=== PATIENT | female | born 1985 ===

== ENCOUNTER 2021-05-31 17:06 | Inpatient (IN) | payer SELFPAY ==
[2021-05-31] MEDS ORDERED: BICITRA ORAL LIQD 30ML PO SCH (19:09)
[2021-05-31] MEDS ORDERED: METOCLOPRAMIDE 10 MG/2 ML INJ IV SCH (19:09)
[2021-05-31] MEDS ORDERED: FAMOTIDINE 20 MG/2 ML INJ IV SCH (19:09)
[2021-05-31] MEDS ORDERED: NalbUPHINE 10 MG/1 ML INJ IV PRN (19:12)
[2021-05-31] MEDS ORDERED: ACETAMINOPHEN 325 MG TAB PO PRN (19:12)
[2021-05-31] MEDS ORDERED: fentaNYL 100 MCG/2 ML INJ IV PRN (19:12)
[2021-05-31] MEDS ORDERED: LACTATED RINGERS 1,000 ML IV SCH (19:15)
[2021-05-31] MEDS ORDERED: LACTATED RINGERS 1,000 ML IV ONE (19:32)
--- NOTE | 2021-05-31 19:40 | History and Physical Report ---
History of Present Illness Date of examination: 05/31/21 Date of admission: 05/31/21 Chief complaint: Contractions History of present illness: 36 year old female presented to L&D with complaint of contractions. Patient received care at [facility] OB-[facility]ED [facility] DIS[facility]ENS[facility]; records were requested and have now been received. LMP 08/30/20. EDC 06/06/21. significant for the following: AMA, hypothyroidism (on Levothyroxine 100 mcg daily), pregestational diabetes (on insulin and Metformin), previous section, rubella nonimmune, varicella nonimmune, US positive for soft markers (flat forehead, low set ears, clenched fists 01/21/21). labs are as follows: O+, antibody screen negative, pap smear negative, rubella nonimmune, RPR nonreactive, hepatitis B surface antigen negative, HIV negative, hemoglobin A1C 8.5%, hemoglobin electrophoresis AA, gonorrhea negative, chlamydia negative, trichomonas negative, varicella nonimmune, 24 hour urine protein 372 mg, quad screen negative, GBS negative. 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 denies: smoking, alcohol abuse, prescription drug abuse, IV drug use - Obstetrical History Expected Date of Delivery: 06/06/21 Actual Gestation: 39 Week(s) 1 Day(s) : 2 Para: 1 Hx # Term Pregnancies: 1 Number of Pregnancies: 0 Spontaneous Abortions: 0 Induced : 0 Number of Living Children: 1 Medications and Allergies Allergies Allergy/AdvReac Type Severity Reaction Status Date / Time shellfish derived AdvReac Hives Verified 05/31/21 17:27 Home Medications Medication Instructions Recorded Confirmed Last Taken Type Levothyroxine [Synthroid] 100 mcg PO DAILY 12/09/14 12/09/14 Unknown History Vits96/Iron Fum/Folic 1 each PO QDAY 12/09/14 12/09/14 Unknown History [ Tablet] glyBURIDE [Glyburide] 5 mg PO QPM 07/06/15 07/06/15 Unknown History glyBURIDE [Glyburide] 7.5 mg PO QAM 12/09/14 12/09/14 Unknown History Ibuprofen [Motrin 800 MG tab] 800 mg PO Q8HR PRN #90 tablet 12/11/14 Unknown Rx Levothyroxine [Synthroid] 100 mcg PO QAM 12/11/14 12/11/14 Unknown History Vit No.126/Iron/Folic 1 tab PO DAILY 12/11/14 12/11/14 Unknown History [Classic Tablet] glyBURIDE [Diabeta] 2.5 mg PO BID 12/11/14 12/11/14 Unknown History oxyCODONE /ACETAMINOPHEN [Percocet 1 tab PO Q6HR PRN #30 tablet 12/11/14 Unknown Rx 5/325 mg] Active Meds: Active Medications Acetaminophen (Acetaminophen 325 Mg Tab) 650 mg PO Q4H PRN PRN Reason: Pain, Mild (1-3) Citric Acid/Sodium Citrate (Bicitra Oral Liqd 30ml) 30 ml PO ONCE WOLF Famotidine (Famotidine 20 Mg/2 Ml Inj) 20 mg IV ONCE WOLF Stop: 06/01/21 19:08 Fentanyl (Fentanyl 100 Mcg/2 Ml Inj) 100 mcg IV Q2H PRN PRN Reason: Pain,Severe (7-10) LABOR PAIN Lactated Ringer's (Lactated Ringers) 1,000 mls @ 999 mls/hr IV BOLUS ONE Stop: 05/31/21 20:32 Lactated Ringer's (Lactated Ringers) 1,000 mls @ 2,250 mls/hr IV PREOP WOLF Stop: 06/01/21 19:42 Oxytocin/Sodium Chloride (Pitocin/Ns 30 Unit/500ml) 30 units in 500 mls @ 0 mls/hr IV TITR WOLF; Protocol Cefazolin Sodium 3 gm/ Sodium (Chloride) 100 mls @ 100 mls/30 min IV PREOP NR; Protocol Stop: 06/01/21 19:14 Metoclopramide HCl (Metoclopramide 10 Mg/2 Ml Inj) 10 mg IV ONCE WOLF Morphine Sulfate (Morphine 2 Mg/1 Ml Inj) 2 mg IV ONCE ONE Stop: 05/31/21 19:30 Nalbuphine HCl (Nalbuphine 10 Mg/1 Ml Inj) 10 mg IV Q2H PRN PRN Reason: Pain, Moderate (4-6) Review of Systems All systems: negative (contractions) - Vital Signs Vital signs: Vital Signs Pulse BP 83 122/64 05/31/21 17:26 05/31/21 17:26 Temp Pulse Resp BP Pulse Ox 83 122/64 05/31/21 17:26 05/31/21 17:26 ROM plus test positive. - Physical Exam Abdomen: Positive: normal appearance, soft. Negative: distention, tenderness, guarding, rigidity Genitourinary (Female): Positive: normal external genitalia, normal perenium. Negative: perineal/vulvar lesions Vagina: Positive: other (small amount of pink fluid) Uterus: Positive: enlarged. Negative: tender Anus/Rectum: Positive: normal perianal skin Extremities: Negative: tenderness - Obstetrical FHR: category 1 Uterine Contraction Monitor Mode: External Cervical Dilatation: 3 Cervical Effacement Percentage: 60 station: -2 Uterine Contraction Pattern: Regular Uterine Contraction Intensity: Mild Results Abnormal lab results 05/31/21 Range/Units 17:47 Membranes Rupture Positive A (Negative) All other labs normal. Assessment and Plan A: at 39 weeks, 1 day gestation. Spontaneous rupture of membranes. Early labor. Pregestational diabetes (on insulin and metformin). Hypothyroidism. Obesity. AMA. P: Admit for repeat section. Requested record and have now been received. Consulted with Dr. Crow re: this patient; Dr. Crow en route to perform section. Notified patient's nurse and charge nurse that patient will be going to OR for C/S soon. C/S orders put in.
[2021-05-31] MEDS ORDERED: OXYTOCIN DRIP 30 UNITS/500 ML BAG IV SCH (20:00)
[2021-05-31] MEDS ORDERED: MORPHINE 2 MG/1 ML INJ IV ONE (20:29)
[2021-05-31 20:30] LABS: Basophils # (Auto) 0.1 K/mm3 (0.0-0.1); Basophils % (Auto) 0.4 % (0.0-1.8); Hematocrit 36.1 % (30.3-42.9); Hemoglobin 11.8 gm/dl (10.1-14.3); Lymphocytes # (Auto) 2.9 K/mm3 (1.2-5.4); Lymphocytes % (Auto) 21.3 % (13.4-35.0); Mean Corpuscular HGB Conc 33 % (30-34); Mean Corpuscular Volume 88 fl (79-97); Monocytes # (Auto) 0.7 K/mm3 (0.0-0.8); Monocytes % (Auto) 5.3 % (0.0-7.3); Platelet Count 247 K/mm3 (140-440); Red Blood Count 4.12 M/mm3 (3.65-5.03); Red Cell Distribution Width 14.7 % (13.2-15.2)
--- NOTE | 2021-05-31 20:37 | Anesthesia Day of Surgery ---
Anesthesia Day of Surgery - Day of Surgery Patient Examined: Yes Patient H&P Reviewed: Yes Patient is NPO: Yes Beta Blockers: No Cardiac Clearance: No Pulmonary Clearance: No Eddi's Test: Negative
--- NOTE | 2021-05-31 20:39 | Anesthesia Consultation ---
Anesthesia Consult and Med Hx Date of service: 05/31/21 - Airway Anesthetic Teeth Evaluation: Poor ROM Head & Neck: Adequate Mental/Hyoid Distance: Adequate Mallampati Class: Class II Intubation Access Assessment: Probably Good - Pulmonary Exam CTA: Yes - Cardiac Exam Cardiac Exam: RRR - Pre-Operative Health Status ASA Pre-Surgery Classification: ASA3 Proposed Anesthetic Plan: Spinal - Pulmonary Hx Smoking: No Hx Asthma: No Hx Respiratory Symptoms: No SOB: No COPD: No Home Oxygen Therapy: No Hx Pneumonia: No Hx Sleep Apnea: No - Cardiovascular System Hx Hypertension: No Hx Coronary Artery Disease: No Hx Heart Attack/AMI: No Hx Angina: No Hx Percutaneous Transluminal Coronary Angioplasty (PTCA): No Hx Cardia Arrhythmia: No Hx Pacemaker: No Hx Internal Defibrillator: No Hx Valvular Heart Disease: No Hx Heart Murmur: No Hx Peripheral Vascular Disease: No - Central Nervous System Hx Neuromuscular Disorder: No Hx Seizures: No CVA: No Hx Back Pain: Yes Hx Psychiatric Problems: No - Gastrointestinal Hx Ulcer: No Hx Gastroesophageal Reflux Disease: Yes - Endocrine Hx Renal Disease: No Hx End Stage Renal Disease: No Hx Cirrhosis: No Hx Liver Disease: No Hx Insulin Dependent Diabetes: Yes Hx Non-Insulin Dependent Diabetes: No Hx Thyroid Disease: No Hx Hypothyroidism: Yes Hx Hyperthyroidism: No - Hematic Hx Anemia: No Hx Sickle Cell Disease: No - Other Systems Hx Alcohol Use: No Hx Substance Use: No Hx Cancer: No Hx Obesity: Yes
[2021-05-31 20:54] LABS: Alanine Aminotransferase 33 units/L (7-56); Albumin 3.2 g/dL (3.9-5); Blood Urea Nitrogen 11 mg/dL (7-17); Calcium 8.9 mg/dL (8.4-10.2); Hemolysis Index 0
[2021-05-31 20:57] LABS: BUN/Creatinine Ratio 18
--- NOTE | 2021-05-31 20:58 | Event Note ---
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
--- NOTE | 2021-05-31 20:59 | Procedure Note ---
OB Delivery Note - Delivery Date of Delivery: 05/31/21 Surgeon: ISRAEL AWAD - Section Postop diagnosis: same section procedure: repeat low transverse Disposition: PACU Complications: none Narrative: Preop diagnosis: IUP at 39.1 weeks, previous x1 in early labor, IDDM Postop diagnosis: Same Procedure: Repeat low transverse section Surgeon: Dr. Israel Awad Anesthesia spinal Complications none EBL 1200 ml IV fluids 700 mL Urine output 3500 mL, clear Drains Dyson to gravity Findings: Viable male with weight 4330gms and 8/9, normal uterus tubes and ovaries bilaterally Procedure: Patient was consented in OB triage, taken to the operating room where she received excellent spinal anesthesia. She was then placed in the dorsal supine position with a leftward tilt. The abdomen was prepped and draped in a sterile fashion, and a timeout was verified. Adequate anesthesia was confirmed prior to the skin incision. A Pfannenstiel skin incision was made with a scalpel taken down to the underlying structures and the fascia was incised in the midline. The incision was extended laterally with curved Contreras scissors, the superior and inferior aspects of the fascial incisions were grasped with Anupama clamps and the rectus muscles dissected sharply. The abdomen was entered bluntly in the midline carried down inferiorly with good visualization of the bladder. The vesicouterine peritoneum was tented with Argentine forceps and incised in the midline with Metzenbaum scissors and the ve sicouterine peritoneum taken down sharply. The uterine incision was then made sharply with a scalpel. The inferior and superior aspect of the uterine incisions were extended bluntly, the baby's head was delivered atraumatically. The remainder of the delivery was uncomplicated, no nuchal cord. The cord was clamped and cut and baby handed to waiting NICU team. An intact placenta with three-vessel cord delivered manually. The uterus was then cleared of all clots and debris and the uterus exteriorized. The uterine incision was closed in 2 layers of 0 vicryl with excellent hemostasis. The abdomen was then irrigated with warm normal saline and the uterus placed back into the abdomen atraumatically. A second look at the uterine incision assured hemostasis. The peritoneum was closed with 3-0 Vicryl, the rectus muscles approximated with 3-0 Vicryl, and the fascia closed with 0 Vicryl in the usual fashion. The subcuticular structures were closed with interrupted sutures of 3-0 Vicryl and the skin closed with 4-0 Monocryl. A pressure dressing was applied. All sponge needle and instrument counts were correct x2. There were no complications. Mom and baby stable to PACU. EBL 1200 mL Jazmyn Awad MD
[2021-05-31 21:03] LABS: Hepatitis C Virus Antibody Non-Reactive (NonReactive)
[2021-05-31] MEDS ORDERED: ceFAZolin/Water 2 GM/20 ML 2 GM/20 ML SYRINGE IV ONE (21:33)
[2021-05-31] MEDS ORDERED: D5W/LACTATED RINGERS 1,000 ML IV SCH (21:47)
[2021-05-31] MEDS ORDERED: MORPHINE 4 MG/1 ML INJ IV PRN (23:04)
[2021-05-31] MEDS ORDERED: KETOROLAC 30 MG/1 ML INJ IV PRN (23:04)
[2021-05-31] MEDS ORDERED: WITCH HAZEL/ GLYCERIN PAD TP PRN (23:04)
[2021-05-31] MEDS ORDERED: NALOXONE 0.4 MG/1 ML INJ IV PRN (23:04)
[2021-05-31] MEDS ORDERED: LANOLIN/ZINC/DIMETHICONE (LANSINOH) 7 GM TP PRN (23:04)
[2021-05-31] MEDS ORDERED: MORPHINE 2 MG/1 ML INJ IV PRN (23:04)
[2021-05-31] MEDS ORDERED: IBUPROFEN 600 MG TAB PO PRN (23:04)
--- NOTE | 2021-05-31 23:34 | Progress Note ---
Spinal Anesthesia Block - Spinal Anesthesia Block Start Time: 22:10 Stop Time: 22:16 Performed by:: POLA KILGORE Procedure: Patient IDed, H&P reviewed, all questions and concerns were answered, and consent was signed. Timeout was performed at bedside. Patient in sitting position. Sterile prep and drape was performed. [3] ml of 1% lidocaine skin wheal at L[3]- L [4]. Needle introducer advanced. 25 gauge spinal needle advanced. Clear, free flowing CSF. negative blood, negative paresthesia. Spinal dose given. All needles removed. Patient tolerated procedure.
--- NOTE | 2021-05-31 23:36 | Progress Note ---
Regional Anesthesia Block - Regional Anesthesia Block Start Time: 23:13 Stop Time: 23:18 Performed By:: POLA KILGORE Procedure: Patient consented for TAP block for post surgical pain management. Patient identified, monitors placed, and time out performed. TAP identified bilaterally via ultrasound. Skin prepped bilaterally with [chlorhexidine] and [22g stimuplex] needle advanced to the TAP. [Marcaine 0.25% 30ml] injected under ultrasound guidance on the [left] side. [Marcaine 0.25% 30ml] injected under ultrasound guidance on the [right] side. Negative aspiration every 5mL, No change in heart rate or rhythm. Patient tolerated the procedure well. No apparent complications seen.
[2021-06-01] MEDS: KETOROLAC 30 MG/1 ML INJ IV PRN ×2 (04:18→15:59)
[2021-06-01] MEDS: LEVOTHYROXINE 100 MCG TAB PO SCH (05:51)
[2021-06-01] MEDS ORDERED: INSULIN REGULAR, HUMAN 100 UNITS/1 ML SUB-Q SCH ×3 (07:30→17:00)
--- NOTE | 2021-06-01 07:30 | Post Anesthesia Evaluation ---
- Post Anesthesia Evaluation Patient Participated: Yes Airway Patent: Yes Stable Respiratory Function: Yes Nausea/Vomiting: No Temp > 96.8F: Yes Pain Manageable: Yes Adequeate Hydration: Yes Anesthesia Complications: No Block Receding Appropriately: Yes Patient on Ventilator: No
--- NOTE | 2021-06-01 10:12 | Progress Note ---
Assessment and Plan POD#1 C/S with uncontrolled pain, IDDM 1. Will give diab diet and coverage with metformin and SSI and 1/2 the dose of insulin now that she was delivered 2. Await hospitalist consult for mgt of IDDM 3. Dysno out at 11am and repeat cbc at 11am as well 4. Routine post op care and pt OOB by noon. Subjective Date of service: 06/01/21 Principal diagnosis: POD#1 C/S, IDDM Interval history: Pt states that she is hungry and pain to incision not well controlled. Pt admits to passing flatus. pt states that she took metformin and also 32N and 22R insulin in AM while preg and 18R at [place] and 22N at bedtime. Vag bleed like a period. Denies N/V/F/C. Pt is bottle feeding Objective - Constitutional Vitals: Vital Signs - 12hr 05/31/21 05/31/21 05/31/21 23:11 23:25 23:40 Temperature 98.0 F Pulse Rate 71 70 73 Respiratory 16 10 L 18 Rate Blood Pressure 117/56 97/54 100/61 Blood Pressure [Left] O2 Sat by Pulse Oximetry O2 Sat by Pulse Oximetry [ Bilateral Throughout] 05/31/21 06/01/21 06/01/21 23:55 00:10 01:10 Temperature 97.9 F Pulse Rate 63 66 69 Respiratory 20 13 18 Rate Blood Pressure 107/59 109/64 Blood Pressure 116/68 [Left] O2 Sat by Pulse 98 Oximetry O2 Sat by Pulse 98 Oximetry [ Bilateral Throughout] 06/01/21 06/01/21 06/01/21 04:18 05:11 07:55 Temperature 98.2 F 97.8 F Pulse Rate 65 64 Respiratory 18 20 20 Rate Blood Pressure 118/65 Blood Pressure 127/71 [Left] O2 Sat by Pulse 97 Oximetry O2 Sat by Pulse 99 Oximetry [ Bilateral Throughout] General appearance: Present: no acute distress - Neck Neck: normal ROM - Respiratory Respiratory effort: normal - Cardiovascular Rhythm: regular Extremities: No edema - Gastrointestinal General gastrointestinal: Present: soft, non-tender, other (Dressing Dry and has blood stain to lower abdomen) - Genitourinary Female genitourinary: other (Lochia moderate; Fundus firm, non-tender C/D/I) - Neurologic Neurologic: moves all extremities - Psychiatric Psychiatric: cooperative - Labs CBC & Chem 7: 05/31/21 19:30 05/31/21 19:30 Labs: Abnormal lab results 05/31/21 05/31/21 05/31/21 Range/Units 17:47 19:30 19:30 WBC 13.5 H (4.5-11.0) K/mm3 Seg Neutrophils % 73.0 H (40.0-70.0) % Seg Neutrophils # 9.8 H (1.8-7.7) K/mm3 Sodium 135 L (137-145) mmol/L Carbon Dioxide 19 L (22-30) mmol/L POC Glucose (70-105) mg/dL AST 63 H (5-40) units/L Alkaline Phosphatase 282 H (35-129) units/L Albumin 3.2 L (3.9-5) g/dL Membranes Rupture Positive A (Negative) 05/31/21 Range/Units 21:39 WBC (4.5-11.0) K/mm3 Seg Neutrophils % (40.0-70.0) % Seg Neutrophils # (1.8-7.7) K/mm3 Sodium (137-145) mmol/L Carbon Dioxide (22-30) mmol/L POC Glucose 64 L (70-105) mg/dL AST (5-40) units/L Alkaline Phosphatase (35-129) units/L Albumin (3.9-5) g/dL Membranes Rupture (Negative) Medications & Allergies - Medications Allergies/Adverse Reactions: Allergies shellfish derived Adverse Reaction (Verified 05/31/21 17:27) Hives Home Medications: Home Medications Medication Instructions Recorded Confirmed Last Taken Type Levothyroxine [Synthroid] 100 mcg PO DAILY 12/09/14 12/09/14 Unknown History Vits96/Iron Fum/Folic 1 each PO QDAY 12/09/14 12/09/14 Unknown History [ Tablet] glyBURIDE [Glyburide] 5 mg PO QPM 12/09/14 12/09/14 Unknown History glyBURIDE [Glyburide] 7.5 mg PO QAM 12/09/14 12/09/14 Unknown History Ibuprofen [Motrin 800 MG tab] 800 mg PO Q8HR PRN #90 tablet 12/11/14 Unknown Rx Levothyroxine [Synthroid] 100 mcg PO QAM 12/11/14 12/11/14 Unknown History Vit No.126/Iron/Folic 1 tab PO DAILY 12/11/14 12/11/14 Unknown History [Classic Tablet] glyBURIDE [Diabeta] 2.5 mg PO BID 12/11/14 12/11/14 Unknown History oxyCODONE /ACETAMINOPHEN [Percocet 1 tab PO Q6HR PRN #30 tablet 12/11/14 Unknown Rx 5/325 mg] Ibuprofen [Motrin] 600 mg PO Q8H PRN #60 tablet 05/31/21 Unknown Rx oxyCODONE /ACETAMINOPHEN [Percocet 1 tab PO Q6HR PRN #20 tablet 05/31/21 Unknown Rx 5/325] Active Medications: Generic Name Dose Route Start Last Admin Trade Name Freq PRN Reason Stop Dose Admin Acetaminophen 650 mg 05/31/21 19:12 Acetaminophen 325 Mg Tab PO Q4H PRN Pain, Mild (1-3) Hydrocodone Bitart/Acetaminophen 1 each 05/31/21 23:04 Hydrocodone/Acetaminophen 5-325 Mg Tab PO Q6H PRN Pain, Moderate (4-6) Citric Acid/Sodium Citrate 30 ml 05/31/21 19:09 Bicitra Oral Liqd 30ml PO ONCE WOLF Famotidine 20 mg 05/31/21 19:09 05/31/21 21:42 Famotidine 20 Mg/2 Ml Inj IV 06/01/21 19:08 20 mg ONCE WOLF Administration Fentanyl 100 mcg 05/31/21 19:12 Fentanyl 100 Mcg/2 Ml Inj IV Q2H PRN Pain,Severe (7-10) LABOR PAIN Oxytocin/Sodium Chloride 30 units in 500 mls @ 0 mls/hr 05/31/21 20:00 Pitocin/Ns 30 Unit/500ml IV TITR WOLF Protocol As Directed Cefazolin Sodium 3 gm/ Sodium 100 mls @ 100 mls/30 min 05/31/21 19:15 Chloride IV 06/01/21 19:14 PREOP NR Protocol Dextrose/Lactated Ringer's 1,000 mls @ 125 mls/hr 05/31/21 21:47 06/01/21 00:35 D5lr IV 125 mls/hr DIRECT WOLF Administration Ibuprofen 600 mg 05/31/21 23:04 Ibuprofen 600 Mg Tab PO Q6H PRN Pain, Mild (1-3) Ibuprofen 800 mg 05/31/21 23:04 Ibuprofen 800 Mg Tab PO Q6H PRN Pain, Moderate (4-6) Insulin Human Regular 0 units 06/01/21 07:30 Insulin Regular, Human 100 Units/1 Ml SUB-Q ACHS [facility] Protocol Ketorolac Tromethamine 15 mg 05/31/21 23:04 Ketorolac 30 Mg/1 Ml Inj IV 06/05/21 23:03 Q6H PRN Pain, Mild (1-3) Ketorolac Tromethamine 30 mg 05/31/21 23:04 06/01/21 04:18 Ketorolac 30 Mg/1 Ml Inj IV 06/05/21 23:03 30 mg Q6H PRN Administration Pain, Moderate (4-6) Levothyroxine Sodium 100 mcg 06/01/21 06:00 06/01/21 05:51 Levothyroxine 100 Mcg Tab PO 100 mcg DAILY@0600 [facility] Administration Metformin HCl 500 mg 06/01/21 08:00 Metformin 500 Mg Tab PO BIDDIAB [facility] Metoclopramide HCl 10 mg 05/31/21 19:09 05/31/21 21:42 Metoclopramide 10 Mg/2 Ml Inj IV 10 mg ONCE [facility] Administration Morphine Sulfate 2 mg 05/31/21 23:04 Morphine 2 Mg/1 Ml Inj IV Q4H PRN Pain, Moderate (4-6) Morphine Sulfate 4 mg 05/31/21 23:04 Morphine 4 Mg/1 Ml Inj IV Q4H PRN Pain , Severe (7-10) Multi-Ingredient Ointment 1 applic 05/31/21 23:04 Lanolin/Zinc/Dimethicone (Lansinoh) 7 Gm TP PRN PRN dryness/cracking Nalbuphine HCl 10 mg 05/31/21 19:12 Nalbuphine 10 Mg/1 Ml Inj IV Q2H PRN Pain, Moderate (4-6) Naloxone HCl 0.1 mg 05/31/21 23:04 Naloxone 0.4 Mg/1 Ml Inj IV Q2MIN PRN Res Rate </= 8 or 02 SAT < 92% Oxycodone/Acetaminophen 1 tab 05/31/21 23:04 Oxycodone /Acetaminophen 5-325mg Tab PO Q6H PRN Pain, Moderate (4-6) Sodium Chloride 10 ml 05/31/21 23:45 Sodium Chloride 0.9% 10 Ml Flush Syringe IV 06/01/21 23:44 PRN NR Witch Marisela/Glycerin 1 each 05/31/21 23:04 Witch Marisela/ Glycerin Pad TP PRN PRN Hemorrhoids/cleansing/soothing
[2021-06-01 10:26] LABS: Hemoglobin 11.1 gm/dl (10.1-14.3)
[2021-06-01] MEDS ORDERED: INSULIN NPH, HUMAN 100 UNIT/1 ML SUB-Q SCH ×2 (11:30→17:00)
[2021-06-01] MEDS: metFORMIN 500 MG TAB PO SCH ×2 (11:57→17:15)
[2021-06-01] MEDS: oxyCODONE /ACETAMINOPHEN 5-325MG TAB PO PRN (11:57)
--- NOTE | 2021-06-01 11:58 | Consultation ---
History of Present Illness - Reason for Consult Consult date: 06/01/21 Diabetes mellitus Requesting physician: ISRAEL AWAD - History of Present Illness Patient is 36 yo female. She just had a section done yesterday and had baby delivered. The hospitalist service has been consulted for management of Insulin dependent diabetes. Patient states she has had diabetes for about 6 yrs and was on Insulin and Metformin at home. Most recent blood glucose 92, measured few mins ago. Past History Past Medical History: diabetes, hypothyroidism, other (obesity, Vitamin D deficiency) Past Surgical History: Social history: single, lives with family, full code. denies: smoking, alcohol abuse, prescription drug abuse, IV drug use Medications and Allergies Allergies Allergy/AdvReac Type Severity Reaction Status Date / Time shellfish derived AdvReac Hives Verified 05/31/21 17:27 Home Medications Medication Instructions Recorded Confirmed Last Taken Type Levothyroxine [Synthroid] 100 mcg PO DAILY 12/09/14 12/09/14 Unknown History Vits96/Iron Fum/Folic 1 each PO QDAY 12/09/14 12/09/14 Unknown History [ Tablet] glyBURIDE [Glyburide] 5 mg PO QPM 12/09/14 12/09/14 Unknown History glyBURIDE [Glyburide] 7.5 mg PO QAM 12/09/14 12/09/14 Unknown History Ibuprofen [Motrin 800 MG tab] 800 mg PO Q8HR PRN #90 tablet 12/11/14 Unknown Rx Levothyroxine [Synthroid] 100 mcg PO QAM 12/11/14 12/11/14 Unknown History Vit No.126/Iron/Folic 1 tab PO DAILY 12/11/14 12/11/14 Unknown History [Classic Tablet] glyBURIDE [Diabeta] 2.5 mg PO BID 12/11/14 12/11/14 Unknown History oxyCODONE /ACETAMINOPHEN [Percocet 1 tab PO Q6HR PRN #30 tablet 12/11/14 Unknown Rx 5/325 mg] Ibuprofen [Motrin] 600 mg PO Q8H PRN #60 tablet 05/31/21 Unknown Rx oxyCODONE /ACETAMINOPHEN [Percocet 1 tab PO Q6HR PRN #20 tablet 05/31/21 Unknown Rx 5/325] Active Meds: Active Medications Acetaminophen (Acetaminophen 325 Mg Tab) 650 mg PO Q4H PRN PRN Reason: Pain, Mild (1-3) Hydrocodone Bitart/Acetaminophen (Hydrocodone/Acetaminophen 5-325 Mg Tab) 1 each PO Q6H PRN PRN Reason: Pain, Moderate (4-6) Citric Acid/Sodium Citrate (Bicitra Oral Liqd 30ml) 30 ml PO ONCE [facility]OLF Famotidine (Famotidine 20 Mg/2 Ml Inj) 20 mg IV ONCE [facility]OLF Stop: 06/01/21 19:08 Last Admin: 05/31/21 21:42 Dose: 20 mg Documented by: Fentanyl (Fentanyl 100 Mcg/2 Ml Inj) 100 mcg IV Q2H PRN PRN Reason: Pain,Severe (7-10) LABOR PAIN Oxytocin/Sodium Chloride (Pitocin/Ns 30 Unit/500ml) 30 units in 500 mls @ 0 mls/hr IV TITR [facility]; Protocol Cefazolin Sodium 3 gm/ Sodium (Chloride) 100 mls @ 100 mls/30 min IV PREOP NR; Protocol Stop: 06/01/21 19:14 Dextrose/Lactated Ringer's (D5lr) 1,000 mls @ 125 mls/hr IV DIRECT [facility]OLF Last Admin: 06/01/21 00:35 Dose: 125 mls/hr Documented by: Ibuprofen (Ibuprofen 600 Mg Tab) 600 mg PO Q6H PRN PRN Reason: Pain, Mild (1-3) Ibuprofen (Ibuprofen 800 Mg Tab) 800 mg PO Q6H PRN PRN Reason: Pain, Moderate (4-6) Insulin Human NPH (Insulin Nph, Human 100 Unit/1 Ml) 11 unit SUB-Q QPMDIAB [facility] Insulin Human NPH (Insulin Nph, Human 100 Unit/1 Ml) 17 unit SUB-Q QDDIAB [facility] Last Admin: 06/01/21 11:54 Dose: 17 unit Documented by: Insulin Human Regular (Insulin Regular, Human 100 Units/1 Ml) 9 units SUB-Q QPMDIAB [facility] Insulin Human Regular (Insulin Regular, Human 100 Units/1 Ml) 11 units SUB-Q QDDIAB [facility]; Protocol Ketorolac Tromethamine (Ketorolac 30 Mg/1 Ml Inj) 15 mg IV Q6H PRN PRN Reason: Pain, Mild (1-3) Stop: 06/05/21 23:03 Ketorolac Tromethamine (Ketorolac 30 Mg/1 Ml Inj) 30 mg IV Q6H PRN PRN Reason: Pain, Moderate (4-6) Stop: 06/05/21 23:03 Last Admin: 06/01/21 04:18 Dose: 30 mg Documented by: Levothyroxine Sodium (Levothyroxine 100 Mcg Tab) 100 mcg PO DAILY@0600 [facility] Last Admin: 06/01/21 05:51 Dose: 100 mcg Documented by: Metformin HCl (Metformin 500 Mg Tab) 500 mg PO BIDDIAB [facility] Last Admin: 06/01/21 11:57 Dose: 500 mg Documented by: Metoclopramide HCl (Metoclopramide 10 Mg/2 Ml Inj) 10 mg IV ONCE [facility] Last Admin: 05/31/21 21:42 Dose: 10 mg Documented by: Morphine Sulfate (Morphine 2 Mg/1 Ml Inj) 2 mg IV Q4H PRN PRN Reason: Pain, Moderate (4-6) Morphine Sulfate (Morphine 4 Mg/1 Ml Inj) 4 mg IV Q4H PRN PRN Reason: Pain , Severe (7-10) Multi-Ingredient Ointment (Lanolin/Zinc/Dimethicone (Lansinoh) 7 Gm) 1 applic TP PRN PRN PRN Reason: dryness/cracking Nalbuphine HCl (Nalbuphine 10 Mg/1 Ml Inj) 10 mg IV Q2H PRN PRN Reason: Pain, Moderate (4-6) Naloxone HCl (Naloxone 0.4 Mg/1 Ml Inj) 0.1 mg IV Q2MIN PRN PRN Reason: Res Rate </= 8 or 02 SAT < 92% Oxycodone/Acetaminophen (Oxycodone /Acetaminophen 5-325mg Tab) 1 tab PO Q6H PRN PRN Reason: Pain, Moderate (4-6) Last Admin: 06/01/21 11:57 Dose: 1 tab Documented by: Sodium Chloride (Sodium Chloride 0.9% 10 Ml Flush Syringe) 10 ml IV PRN NR Stop: 06/01/21 23:44 Witch Marisela/Glycerin (Witch Marisela/ Glycerin Pad) 1 each TP PRN PRN PRN Reason: Hemorrhoids/cleansing/soothing Review of Systems All systems: negative (No fever, no chest pain, no SOB, no headache. All other systems reviewed and are negative.) Exam - Physical Exam Narrative exam: Gen: Not in acute distress, lying in bed, obese Neck:supple, No JVD Lungs:clear to auscultation bilaterally, no crackles, no wheeze Heart: S1 and S2 reg, no murmurs, rubs or gallop Abd:soft, mild tender,surgical site, dressing over lower abd, normal bowel sounds Ext:No edema, no clubbing, no cyanosis Neuro:AAO x 3, no focal neurological signs - Constitutional Vitals: Temp Pulse Resp BP Pulse Ox 97.8 F 64 20 127/71 97 06/01/21 07:55 06/01/21 07:55 06/01/21 07:55 06/01/21 07:55 06/01/21 05:11 Results - Labs CBC & Chem 7: 06/01/21 10:16 05/31/21 19:30 Labs: Abnormal lab results 05/31/21 05/31/21 05/31/21 Range/Units 17:47 19:30 19:30 WBC 13.5 H (4.5-11.0) K/mm3 Seg Neutrophils % 73.0 H (40.0-70.0) % Seg Neutrophils # 9.8 H (1.8-7.7) K/mm3 Sodium 135 L (137-145) mmol/L Carbon Dioxide 19 L (22-30) mmol/L POC Glucose (70-105) mg/dL Hemoglobin A1c (4-6) % AST 63 H (5-40) units/L Alkaline Phosphatase 282 H (35-129) units/L Albumin 3.2 L (3.9-5) g/dL Membranes Rupture Positive A (Negative) 05/31/21 06/01/21 Range/Units 21:39 10:16 WBC (4.5-11.0) K/mm3 Seg Neutrophils % (40.0-70.0) % Seg Neutrophils # (1.8-7.7) K/mm3 Sodium (137-145) mmol/L Carbon Dioxide (22-30) mmol/L POC Glucose 64 L (70-105) mg/dL Hemoglobin A1c 6.5 H (4-6) % AST (5-40) units/L Alkaline Phosphatase (35-129) units/L Albumin (3.9-5) g/dL Membranes Rupture (Negative) Assessment and Plan s/p section Surgery done yesterday 05/31/21 managed by OB/Gyne Diabetes Mellitus Blood glucose controlled Fingerstick blood glucose 92, most recent A1C 6.5 Continue reduced dose Insulin as ordered by Dr. Awad Thanks for consulting us. Will follow.
[2021-06-01] MEDS: HYDROcodone/ACETAMINOPHEN 5-325 MG TAB PO PRN (20:15)
[2021-06-02] MEDS: HYDROcodone/ACETAMINOPHEN 5-325 MG TAB PO PRN (06:23)
[2021-06-02] MEDS ORDERED: INSULIN NPH, HUMAN 100 UNIT/1 ML SUB-Q SCH ×3 (10:14→17:00)
[2021-06-02] MEDS ORDERED: INSULIN REGULAR, HUMAN 100 UNITS/1 ML SUB-Q SCH ×2 (10:18→17:00)
--- NOTE | 2021-06-02 10:39 | Progress Note ---
Assessment and Plan POD#2 C/S with serosanguinous drainage when dressing removed. IDDM controlled with insulin and metformin; Mild endomyometritis 1. Dressing changed and pressure dressing applied 2. Will repeat cbc and will give augmentin to enhance wound healing in the setting of diabetes and obesity 3. Routine care Plan of care discussed. Pt told she is not ready for discharge home today. All questions encouraged and answered Subjective Date of service: 06/02/21 Principal diagnosis: POD#2. C/S, IDDM Interval history: pt states she only passed flatus yesterday. Pt has tolerated regular diet. Pain controlled with meds. pt is bottle feeding. Vag bleed less than a period Objective - Constitutional Vitals: Vital Signs - 12hr 06/02/21 06/02/21 06/02/21 00:01 01:02 06:23 Temperature 98.5 F Pulse Rate 73 Respiratory 20 20 Rate Blood Pressure 133/70 O2 Sat by Pulse 99 Oximetry O2 Sat by Pulse 98 Oximetry [ Bilateral Throughout] 06/02/21 08:22 Temperature 98.0 F Pulse Rate 55 L Respiratory 18 Rate Blood Pressure 131/73 O2 Sat by Pulse 99 Oximetry O2 Sat by Pulse Oximetry [ Bilateral Throughout] General appearance: Present: no acute distress - Neck Neck: normal ROM - Respiratory Respiratory effort: normal - Breasts Breasts: deferred - Cardiovascular Rhythm: regular Extremities: No edema - Gastrointestinal General gastrointestinal: Present: soft, tender (to right side of lower abdomen only), other (Incision with serosanguinous drainage centrally, small amount. ) - Genitourinary Female genitourinary: other (fundus with mild tenderness and right side of lower abdomen; Lochia less than a period) - Integumentary Integumentary: warm - Neurologic Neurologic: moves all extremities - Psychiatric Psychiatric: cooperative - Labs CBC & Chem 7: 06/01/21 10:16 05/31/21 19:30 Labs: Abnormal lab results 06/01/21 06/01/21 06/02/21 Range/Units 10:16 17:26 08:16 POC Glucose 151 H 63 L (70-105) mg/dL Hemoglobin A1c 6.5 H (4-6) % Medications & Allergies - Medications Allergies/Adverse Reactions: Allergies shellfish derived Adverse Reaction (Verified 05/31/21 17:27) Hives Home Medications: Home Medications Medication Instructions Recorded Confirmed Last Taken Type Levothyroxine [Synthroid] 100 mcg PO DAILY 12/09/14 12/09/14 Unknown History Vits96/Iron Fum/Folic 1 each PO QDAY 12/09/14 12/09/14 Unknown History [ Tablet] glyBURIDE [Glyburide] 5 mg PO QPM 12/09/14 12/09/14 Unknown History glyBURIDE [Glyburide] 7.5 mg PO QAM 12/09/14 12/09/14 Unknown History Ibuprofen [Motrin 800 MG tab] 800 mg PO Q8HR PRN #90 tablet 12/11/14 Unknown Rx Levothyroxine [Synthroid] 100 mcg PO QAM 12/11/14 12/11/14 Unknown History Vit No.126/Iron/Folic 1 tab PO DAILY 12/11/14 12/11/14 Unknown History [Classic Tablet] glyBURIDE [Diabeta] 2.5 mg PO BID 12/11/14 12/11/14 Unknown History oxyCODONE /ACETAMINOPHEN [Percocet 1 tab PO Q6HR PRN #30 tablet 12/11/14 Unknown Rx 5/325 mg] Ibuprofen [Motrin] 600 mg PO Q8H PRN #60 tablet 05/31/21 Unknown Rx oxyCODONE /ACETAMINOPHEN [Percocet 1 tab PO Q6HR PRN #20 tablet 05/31/21 Unknown Rx 5/325] Active Medications: Generic Name Dose Route Start Last Admin Trade Name Freq PRN Reason Stop Dose Admin Acetaminophen 650 mg 05/31/21 19:12 Acetaminophen 325 Mg Tab PO Q4H PRN Pain, Mild (1-3) Hydrocodone Bitart/Acetaminophen 1 each 05/31/21 23:04 06/02/21 06:23 Hydrocodone/Acetaminophen 5-325 Mg Tab PO 1 each Q6H PRN Administration Pain, Moderate (4-6) Citric Acid/Sodium Citrate 30 ml 05/31/21 19:09 Bicitra Oral Liqd 30ml PO ONCE [facility] Fentanyl 100 mcg 05/31/21 19:12 Fentanyl 100 Mcg/2 Ml Inj IV Q2H PRN Pain,Severe (7-10) LABOR PAIN Oxytocin/Sodium Chloride 30 units in 500 mls @ 0 mls/hr 05/31/21 20:00 Pitocin/Ns 30 Unit/500ml IV TITR [facility] Protocol As Directed Dextrose/Lactated Ringer's 1,000 mls @ 125 mls/hr 05/31/21 21:47 06/01/21 00:35 D5lr IV 125 mls/hr DIRECT [facility]OLF Administration Ibuprofen 600 mg 05/31/21 23:04 Ibuprofen 600 Mg Tab PO Q6H PRN Pain, Mild (1-3) Ibuprofen 800 mg 05/31/21 23:04 Ibuprofen 800 Mg Tab PO Q6H PRN Pain, Moderate (4-6) Insulin Human NPH 11 unit 06/01/21 17:00 06/01/21 17:15 Insulin Nph, Human 100 Unit/1 Ml SUB-Q 11 unit QPMDIAB [facility] Administration Insulin Human NPH 17 unit 06/01/21 11:30 06/01/21 11:54 Insulin Nph, Human 100 Unit/1 Ml SUB-Q 17 unit QDDIAB [facility] Administration Insulin Human Regular 9 units 06/01/21 17:00 06/01/21 17:15 Insulin Regular, Human 100 Units/1 Ml SUB-Q 9 units QPMDIAB [facility] Administration Insulin Human Regular 11 units 06/01/21 11:15 Insulin Regular, Human 100 Units/1 Ml SUB-Q QDDIAB [facility] Protocol Ketorolac Tromethamine 15 mg 05/31/21 23:04 Ketorolac 30 Mg/1 Ml Inj IV 06/05/21 23:03 Q6H PRN Pain, Mild (1-3) Ketorolac Tromethamine 30 mg 05/31/21 23:04 06/01/21 15:59 Ketorolac 30 Mg/1 Ml Inj IV 06/05/21 23:03 30 mg Q6H PRN Administration Pain, Moderate (4-6) Levothyroxine Sodium 100 mcg 06/01/21 06:00 06/01/21 05:51 Levothyroxine 100 Mcg Tab PO 100 mcg DAILY@0600 [facility] Administration Metformin HCl 500 mg 06/01/21 08:00 06/01/21 17:15 Metformin 500 Mg Tab PO 500 mg BIDDIAB [facility] Administration Metoclopramide HCl 10 mg 05/31/21 19:09 05/31/21 21:42 Metoclopramide 10 Mg/2 Ml Inj IV 10 mg ONCE [facility] Administration Morphine Sulfate 2 mg 05/31/21 23:04 Morphine 2 Mg/1 Ml Inj IV Q4H PRN Pain, Moderate (4-6) Morphine Sulfate 4 mg 05/31/21 23:04 Morphine 4 Mg/1 Ml Inj IV Q4H PRN Pain , Severe (7-10) Multi-Ingredient Ointment 1 applic 05/31/21 23:04 Lanolin/Zinc/Dimethicone (Lansinoh) 7 Gm TP PRN PRN dryness/cracking Nalbuphine HCl 10 mg 05/31/21 19:12 Nalbuphine 10 Mg/1 Ml Inj IV Q2H PRN Pain, Moderate (4-6) Naloxone HCl 0.1 mg 05/31/21 23:04 Naloxone 0.4 Mg/1 Ml Inj IV Q2MIN PRN Res Rate </= 8 or 02 SAT < 92% Oxycodone/Acetaminophen 1 tab 05/31/21 23:04 06/01/21 11:57 Oxycodone /Acetaminophen 5-325mg Tab PO 1 tab Q6H PRN Administration Pain, Moderate (4-6) Witch Marisela/Glycerin 1 each 05/31/21 23:04 Witch Marisela/ Glycerin Pad TP PRN PRN Hemorrhoids/cleansing/soothing
--- NOTE | 2021-06-02 10:46 | Progress Note ---
Assessment and Plan Assessment and plan: s/p section Surgery done yesterday 05/31/21 managed by OB/Gyne Diabetes Mellitus Blood glucose controlled Fingerstick blood glucose 92, most recent A1C 6.5 Continue reduced dose Insulin as ordered by Dr. Crow Thanks for consulting us. Will follow. 06/02/21 patient doing better. Blood glucose has been on low side, therefore will decrease Insulin doses History Interval history: Feels better Hospitalist Physical - Physical exam Narrative exam: Gen: Not in acute distress, lying in bed, obese HEENT:Normocephalic,atraumatic Neck:supple, No JVD Lungs:clear to auscultation bilaterally, no crackles, no wheeze Heart: S1 and S2 reg, no murmurs, rubs or gallop Abd:soft, mild tender,surgical site, dressing over lower abd, normal bowel sounds Ext:No edema, no clubbing, no cyanosis Neuro:AAO x 3, no focal neurological signs - Constitutional Vitals: Temp Pulse Resp BP Pulse Ox 98.0 F 55 L 18 131/73 99 06/02/21 08:22 06/02/21 08:22 06/02/21 08:22 06/02/21 08:22 06/02/21 08:22 General appearance: Present: no acute distress Results - Labs CBC & Chem 7: 06/02/21 13:26 05/31/21 19:30 Labs: Laboratory Last Values WBC 13.5 K/mm3 (4.5-11.0) H 05/31/21 19:30 RBC 4.12 M/mm3 (3.65-5.03) 05/31/21 19:30 Hgb 11.1 gm/dl (10.1-14.3) 06/01/21 10:16 Hct 34.0 % (30.3-42.9) 06/01/21 10:16 MCV 88 fl (79-97) 05/31/21 19:30 MCH 29 pg (28-32) 05/31/21 19:30 MCHC 33 % (30-34) 05/31/21 19:30 RDW 14.7 % (13.2-15.2) 05/31/21 19:30 Plt Count 247 K/mm3 (140-440) 05/31/21 19:30 Lymph % (Auto) 21.3 % (13.4-35.0) 05/31/21 19:30 [place] % (Auto) 5.3 % (0.0-7.3) 05/31/21 19:30 Eos % (Auto) 0.0 % (0.0-4.3) 05/31/21 19:30 Baso % (Auto) 0.4 % (0.0-1.8) 05/31/21 19:30 Lymph # (Auto) 2.9 K/mm3 (1.2-5.4) 05/31/21 19:30 [place] # (Auto) 0.7 K/mm3 (0.0-0.8) 05/31/21 19:30 Eos # (Auto) 0.0 K/mm3 (0.0-0.4) 05/31/21 19:30 Baso # (Auto) 0.1 K/mm3 (0.0-0.1) 05/31/21 19:30 Seg Neutrophils % 73.0 % (40.0-70.0) H 05/31/21 19:30 Seg Neutrophils # 9.8 K/mm3 (1.8-7.7) H 05/31/21 19:30 Sodium 135 mmol/L (137-145) L 05/31/21 19:30 Potassium 4.5 mmol/L (3.6-5.0) 05/31/21 19:30 Chloride 101.1 mmol/L (98-107) 05/31/21 19:30 Carbon Dioxide 19 mmol/L (22-30) L 05/31/21 19:30 Anion Gap 19 mmol/L 05/31/21 19:30 BUN 11 mg/dL (7-17) 05/31/21 19:30 Creatinine 0.6 mg/dL (0.6-1.2) 05/31/21 19:30 Estimated GFR > 60 ml/min 05/31/21 19:30 BUN/Creatinine Ratio 18 % 05/31/21 19:30 Glucose 65 mg/dL (65-100) 05/31/21 19:30 POC Glucose 131 mg/dL (70-105) H 06/02/21 10:30 Hemoglobin A1c 6.5 % (4-6) H 06/01/21 10:16 Calcium 8.9 mg/dL (8.4-10.2) 05/31/21 19:30 Total Bilirubin 0.30 mg/dL (0.1-1.2) 05/31/21 19:30 AST 63 units/L (5-40) H 05/31/21 19:30 ALT 33 units/L (7-56) 05/31/21 19:30 Alkaline Phosphatase 282 units/L (35-129) H 05/31/21 19:30 Total Protein 6.9 g/dL (6.3-8.2) 05/31/21 19:30 Albumin 3.2 g/dL (3.9-5) L 05/31/21 19:30 Albumin/Globulin Ratio 0.9 % 05/31/21 19:30 Membranes Rupture Positive (Negative) A 05/31/21 17:47 Syphilis IgG Antibody Nonreactive (NonReactive) 05/31/21 19:30 Coronavirus (PCR) Negative (Negative) 06/01/21 Unknown Hep Bs Antigen Nonreactive (Negative) 05/31/21 19:30 Hepatitis C Antibody Non-reactive (NonReactive) 05/31/21 19:30 HIV 1&2 Antibody Rapid Non react (Non React) 05/31/21 19:30 HIV P24 Antigen Non react (Non React) 05/31/21 19:30 Rubella IgG Antibody Non-immune (Immune) 05/31/21 19:30 Blood Type O POSITIVE 05/31/21 19:30 Antibody Screen Negative 05/31/21 19:30 Active Medications - Current Medications Current Medications: Generic Name Dose Route Start Last Admin Trade Name Freq PRN Reason Stop Dose Admin Acetaminophen 650 mg 05/31/21 19:12 Acetaminophen 325 Mg Tab PO Q4H PRN Pain, Mild (1-3) Hydrocodone Bitart/Acetaminophen 1 each 05/31/21 23:04 06/02/21 06:23 Hydrocodone/Acetaminophen 5-325 Mg Tab PO 1 each Q6H PRN Administration Pain, Moderate (4-6) Amoxicillin/Clavulanate Potassium 1 each 06/02/21 11:00 Amoxicillin/K Clav 875/125mg Tab PO 06/07/21 10:59 Q12HR [facility] Protocol Citric Acid/Sodium Citrate 30 ml 05/31/21 19:09 Bicitra Oral Liqd 30ml PO ONCE [facility] Fentanyl 100 mcg 05/31/21 19:12 Fentanyl 100 Mcg/2 Ml Inj IV Q2H PRN Pain,Severe (7-10) LABOR PAIN Oxytocin/Sodium Chloride 30 units in 500 mls @ 0 mls/hr 05/31/21 20:00 Pitocin/Ns 30 Unit/500ml IV TITR [facility] Protocol As Directed Dextrose/Lactated Ringer's 1,000 mls @ 125 mls/hr 05/31/21 21:47 06/01/21 00:35 D5lr IV 125 mls/hr DIRECT [facility]OL[facility] Administration Ibuprofen 600 mg 05/31/21 23:04 Ibuprofen 600 Mg Tab PO Q6H PRN Pain, Mild (1-3) Ibuprofen 800 mg 05/31/21 23:04 Ibuprofen 800 Mg Tab PO Q6H PRN Pain, Moderate (4-6) Insulin Human NPH 5 unit 06/02/21 10:43 Insulin Nph, Human 100 Unit/1 Ml SUB-Q QPMDIAB [facility] Insulin Human NPH 11 unit 06/02/21 10:43 Insulin Nph, Human 100 Unit/1 Ml SUB-Q QDDIAB [facility] Insulin Human Regular 7 units 06/02/21 11:00 Insulin Regular, Human 100 Units/1 Ml SUB-Q QDDIAB [facility] Protocol Insulin Human Regular 5 units 06/02/21 10:42 Insulin Regular, Human 100 Units/1 Ml SUB-Q QPMDIAB [facility] Ketorolac Tromethamine 15 mg 05/31/21 23:04 Ketorolac 30 Mg/1 Ml Inj IV 06/05/21 23:03 Q6H PRN Pain, Mild (1-3) Ketorolac Tromethamine 30 mg 05/31/21 23:04 06/01/21 15:59 Ketorolac 30 Mg/1 Ml Inj IV 06/05/21 23:03 30 mg Q6H PRN Administration Pain, Moderate (4-6) Levothyroxine Sodium 100 mcg 06/01/21 06:00 06/01/21 05:51 Levothyroxine 100 Mcg Tab PO 100 mcg DAILY@0600 [facility] Administration Metformin HCl 500 mg 06/01/21 08:00 06/01/21 17:15 Metformin 500 Mg Tab PO 500 mg BIDDIAB [facility] Administration Metoclopramide HCl 10 mg 05/31/21 19:09 05/31/21 21:42 Metoclopramide 10 Mg/2 Ml Inj IV 10 mg ONCE [facility] Administration Morphine Sulfate 2 mg 05/31/21 23:04 Morphine 2 Mg/1 Ml Inj IV Q4H PRN Pain, Moderate (4-6) Morphine Sulfate 4 mg 05/31/21 23:04 Morphine 4 Mg/1 Ml Inj IV Q4H PRN Pain , Severe (7-10) Multi-Ingredient Ointment 1 applic 05/31/21 23:04 Lanolin/Zinc/Dimethicone (Lansinoh) 7 Gm TP PRN PRN dryness/cracking Nalbuphine HCl 10 mg 05/31/21 19:12 Nalbuphine 10 Mg/1 Ml Inj IV Q2H PRN Pain, Moderate (4-6) Naloxone HCl 0.1 mg 05/31/21 23:04 Naloxone 0.4 Mg/1 Ml Inj IV Q2MIN PRN Res Rate </= 8 or 02 SAT < 92% Oxycodone/Acetaminophen 1 tab 05/31/21 23:04 06/01/21 11:57 Oxycodone /Acetaminophen 5-325mg Tab PO 1 tab Q6H PRN Administration Pain, Moderate (4-6) Witch Marisela/Glycerin 1 each 05/31/21 23:04 Witch Marisela/ Glycerin Pad TP PRN PRN Hemorrhoids/cleansing/soothing
[2021-06-02] MEDS: metFORMIN 500 MG TAB PO SCH ×2 (14:04→17:25)
[2021-06-02 14:16] LABS: Basophils % (Auto) 0.4 % (0.0-1.8); Eosinophils # (Auto) 0.1 K/mm3 (0.0-0.4); Hematocrit 31.6 % (30.3-42.9); Hemoglobin 10.4 gm/dl (10.1-14.3); Lymphocytes # (Auto) 2.1 K/mm3 (1.2-5.4); Lymphocytes % (Auto) 22.5 % (13.4-35.0); Mean Corpuscular HGB Conc 33 % (30-34); Mean Corpuscular Volume 91 fl (79-97); Monocytes # (Auto) 0.5 K/mm3 (0.0-0.8); Platelet Count 185 K/mm3 (140-440); Red Blood Count 3.49 M/mm3 (3.65-5.03); Red Cell Distribution Width 14.9 % (13.2-15.2)
[2021-06-02] MEDS: IBUPROFEN 800 MG TAB PO PRN (14:22)
[2021-06-02] MEDS: oxyCODONE /ACETAMINOPHEN 5-325MG TAB PO PRN ×2 (14:22→22:41)
[2021-06-02] MEDS: INSULIN REGULAR, HUMAN 100 UNITS/1 ML SUB-Q SCH (14:55)
[2021-06-02] MEDS: AMOXICILLIN/K CLAV 875/125MG TAB PO SCH ×2 (14:57→22:41)
[2021-06-02] MEDS: INSULIN NPH, HUMAN 100 UNIT/1 ML SUB-Q SCH (17:07)
[2021-06-03] MEDS: IBUPROFEN 800 MG TAB PO PRN (03:26)
[2021-06-03] MEDS: metFORMIN 500 MG TAB PO SCH (07:50)
[2021-06-03] MEDS: LEVOTHYROXINE 100 MCG TAB PO SCH (07:50)
[2021-06-03] MEDS: INSULIN REGULAR, HUMAN 100 UNITS/1 ML SUB-Q SCH (08:03)
[2021-06-03] MEDS: INSULIN NPH, HUMAN 100 UNIT/1 ML SUB-Q SCH (08:04)
[2021-06-03] MEDS: AMOXICILLIN/K CLAV 875/125MG TAB PO SCH (09:29)
--- NOTE | 2021-06-03 11:01 | Progress Note ---
Assessment and Plan A: POD #3 IDDM Morbid Maternal Obesity P: Follow Routine PostOp Orders Continue Metformin/Insulin as ordered Hospitalist to make Insulin adjustments prior to discharge Consult Dr. Crow before discharge home Subjective - Subjective Date of service: 06/03/21 Principal diagnosis: POD#2. C/S, IDDM Patient reports: appetite normal, voiding normally, pain well controlled, flatus, ambulating normally [place]: doing well, bottle feeding Objective - Vital Signs Latest vital signs: Vital Signs Temp Pulse Resp BP Pulse Ox Pulse Ox 06/03/21 09:02 98.6 F 81 18 124/64 97 06/03/21 07:45 97 06/03/21 03:26 18 06/02/21 23:37 98.0 F 77 18 119/69 98 06/02/21 22:41 18 06/02/21 22:00 98 06/02/21 17:34 98.4 F 62 20 113/69 96 Intake and Output 06/02/21 06/03/21 06/03/21 22:59 06:59 14:59 Intake Total 840 120 Balance 840 120 Intake: Oral 360 120 Intake, Free Water 480 Other: Total, Intake Amount 360 120 # Voids Void 1 1 1 - Exam Breasts: Present: normal Cardiovascular: Present: Regular rate Lungs: Present: Clear to auscultation, Normal air movement Abdomen: Present: normal appearance, soft, normal bowel sounds Uterus: Present: normal, firm, fundal height below umbilicus Extremities: Present: normal Incision: Present: normal, intact, other (scant amount of moisture on steri strips) - Labs Labs: Abnormal lab results 06/02/21 06/02/21 06/02/21 Range/Units 13:26 14:09 22:45 RBC 3.49 L (3.65-5.03) M/mm3 Seg Neutrophils % 71.1 H (40.0-70.0) % POC Glucose 147 H 155 H (70-105) mg/dL
--- NOTE | 2021-06-03 11:10 | Progress Note ---
Assessment and Plan Assessment and plan: s/p section Surgery done yesterday 05/31/21 managed by OB/Gyne Diabetes Mellitus Blood glucose controlled Fingerstick blood glucose 92, most recent A1C 6.5 Continue reduced dose Insulin as ordered by Dr. Crow Thanks for consulting us. Will follow. 06/02/21 patient doing better. Blood glucose has been on low side, therefore will decrease Insulin doses 06/03/21 Blood glucose was better yesterday 140s, now 87 and 103. I recommend stopping Humulin R, which is short acting and continue Humulin N at current dose. From medical point, she is stable to discharge home on Humulin N and Metformin. I asked her to follow with her PCP to adjust dose as appropriate. History Interval history: Feels better Fingerstick glucose on low side Hospitalist Physical - Physical exam Narrative exam: Gen: Not in acute distress, lying in bed, obese HEENT:Normocephalic,atraumatic Neck:supple, No JVD Lungs:clear to auscultation bilaterally, no crackles, no wheeze Heart: S1 and S2 reg, no murmurs, rubs or gallop Abd:soft, mild tender,surgical site, dressing over lower abd, normal bowel sounds Ext:No edema, no clubbing, no cyanosis Neuro:AAO x 3, no focal neurological signs - Constitutional Vitals: Temp Pulse Resp BP Pulse Ox 98.6 F 81 18 124/64 97 06/03/21 09:02 06/03/21 09:02 06/03/21 09:02 06/03/21 09:02 06/03/21 09:02 General appearance: Present: no acute distress Results - Labs CBC & Chem 7: 06/02/21 13:26 05/31/21 19:30 Labs: Laboratory Last Values WBC 9.3 K/mm3 (4.5-11.0) 06/02/21 13:26 RBC 3.49 M/mm3 (3.65-5.03) L 06/02/21 13:26 Hgb 10.4 gm/dl (10.1-14.3) 06/02/21 13:26 Hct 31.6 % (30.3-42.9) 06/02/21 13:26 MCV 91 fl (79-97) 06/02/21 13:26 MCH 30 pg (28-32) 06/02/21 13: MCHC 33 % (30-34) 06/02/21 13: RDW 14.9 % (13.2-15.2) 06/02/21 13: Plt Count 185 K/mm3 (140-440) 06/02/21 13: Lymph % (Auto) 22.5 % (13.4-35.0) 06/02/21 13: [place] % (Auto) 5.0 % (0.0-7.3) 06/02/21 13: Eos % (Auto) 1.0 % (0.0-4.3) 06/02/21 13: Baso % (Auto) 0.4 % (0.0-1.8) 06/02/21 13: Lymph # (Auto) 2.1 K/mm3 (1.2-5.4) 06/02/21 13: [place] # (Auto) 0.5 K/mm3 (0.0-0.8) 06/02/21 13: Eos # (Auto) 0.1 K/mm3 (0.0-0.4) 06/02/21 13: Baso # (Auto) 0.0 K/mm3 (0.0-0.1) 06/02/21 13: Seg Neutrophils % 71.1 % (40.0-70.0) H 06/02/21 13: Seg Neutrophils # 6.6 K/mm3 (1.8-7.7) 06/02/21 13:26 Sodium 135 mmol/L (137-145) L 05/31/21 19:30 Potassium 4.5 mmol/L (3.6-5.0) 05/31/21 19:30 Chloride 101.1 mmol/L (98-107) 05/31/21 19:30 Carbon Dioxide 19 mmol/L (22-30) L 05/31/21 19:30 Anion Gap 19 mmol/L 05/31/21 19:30 BUN 11 mg/dL (7-17) 05/31/21 19:30 Creatinine 0.6 mg/dL (0.6-1.2) 05/31/21 19:30 Estimated GFR > 60 ml/min 05/31/21 19:30 BUN/Creatinine Ratio 18 % 05/31/21 19:30 Glucose 65 mg/dL (65-100) 05/31/21 19:30 POC Glucose 104 mg/dL (70-105) 06/03/21 10:49 Hemoglobin A1c 6.5 % (4-6) H 06/01/21 10:16 Calcium 8.9 mg/dL (8.4-10.2) 05/31/21 19:30 Total Bilirubin 0.30 mg/dL (0.1-1.2) 05/31/21 19:30 AST 63 units/L (5-40) H 05/31/21 19:30 ALT 33 units/L (7-56) 05/31/21 19:30 Alkaline Phosphatase 282 units/L (35-129) H 05/31/21 19:30 Total Protein 6.9 g/dL (6.3-8.2) 05/31/21 19:30 Albumin 3.2 g/dL (3.9-5) L 05/31/21 19:30 Albumin/Globulin Ratio 0.9 % 05/31/21 19:30 Membranes Rupture Positive (Negative) A 05/31/21 17:47 Syphilis IgG Antibody Nonreactive (NonReactive) 05/31/21 19:30 Coronavirus (PCR) Negative (Negative) 06/01/21 Unknown Hep Bs Antigen Nonreactive (Negative) 05/31/21 19:30 Hepatitis C Antibody Non-reactive (NonReactive) 05/31/21 19:30 HIV 1&2 Antibody Rapid Non react (Non React) 05/31/21 19:30 HIV P24 Antigen Non react (Non React) 05/31/21 19:30 Rubella IgG Antibody Non-immune (Immune) 05/31/21 19:30 Blood Type O POSITIVE 05/31/21 19:30 Antibody Screen Negative 05/31/21 19:30 Active Medications - Current Medications Current Medications: Generic Name Dose Route Start Last Admin Trade Name Freq PRN Reason Stop Dose Admin Acetaminophen 650 mg 05/31/21 19:12 Acetaminophen 325 Mg Tab PO Q4H PRN Pain, Mild (1-3) Hydrocodone Bitart/Acetaminophen 1 each 05/31/21 23:04 06/02/21 06:23 Hydrocodone/Acetaminophen 5-325 Mg Tab PO 1 each Q6H PRN Administration Pain, Moderate (4-6) Amoxicillin/Clavulanate Potassium 1 each 06/02/21 11:00 06/03/21 09:29 Amoxicillin/K Clav 875/125mg Tab PO 06/07/21 10:59 1 each Q12HR WOLF Administration Protocol Citric Acid/Sodium Citrate 30 ml 05/31/21 19:09 Bicitra Oral Liqd 30ml PO ONCE WOLF Fentanyl 100 mcg 05/31/21 19:12 Fentanyl 100 Mcg/2 Ml Inj IV Q2H PRN Pain,Severe (7-10) LABOR PAIN Oxytocin/Sodium Chloride 30 units in 500 mls @ 0 mls/hr 05/31/21 20:00 Pitocin/Ns 30 Unit/500ml IV TITR WOLF Protocol As Directed Dextrose/Lactated Ringer's 1,000 mls @ 125 mls/hr 05/31/21 21:47 06/01/21 00:35 D5lr IV 125 mls/hr DIRECT WOLF Administration Ibuprofen 600 mg 05/31/21 23:04 06/03/21 09:29 Ibuprofen 600 Mg Tab PO 600 mg Q6H PRN Administration Pain, Mild (1-3) Ibuprofen 800 mg 05/31/21 23:04 06/03/21 03:26 Ibuprofen 800 Mg Tab PO 800 mg Q6H PRN Administration Pain, Moderate (4-6) Insulin Human NPH 5 unit 06/02/21 17:00 06/02/21 17:24 Insulin Nph, Human 100 Unit/1 Ml SUB-Q 5 unit QPMDIAB [facility] Administration Insulin Human NPH 7 unit 06/02/21 11:00 06/03/21 08:04 Insulin Nph, Human 100 Unit/1 Ml SUB-Q Not Given QDDIAB [facility] Ketorolac Tromethamine 15 mg 05/31/21 23:04 Ketorolac 30 Mg/1 Ml Inj IV 06/05/21 23:03 Q6H PRN Pain, Mild (1-3) Ketorolac Tromethamine 30 mg 05/31/21 23:04 06/01/21 15:59 Ketorolac 30 Mg/1 Ml Inj IV 06/05/21 23:03 30 mg Q6H PRN Administration Pain, Moderate (4-6) Levothyroxine Sodium 100 mcg 06/01/21 06:00 06/03/21 07:50 Levothyroxine 100 Mcg Tab PO 100 mcg DAILY@0600 [facility] Administration Metformin HCl 500 mg 06/01/21 08:00 06/03/21 07:50 Metformin 500 Mg Tab PO 500 mg BIDDIAB WOLF Administration Metoclopramide HCl 10 mg 05/31/21 19:09 05/31/21 21:42 Metoclopramide 10 Mg/2 Ml Inj IV 10 mg ONCE WOLF Administration Morphine Sulfate 2 mg 05/31/21 23:04 Morphine 2 Mg/1 Ml Inj IV Q4H PRN Pain, Moderate (4-6) Morphine Sulfate 4 mg 05/31/21 23:04 Morphine 4 Mg/1 Ml Inj IV Q4H PRN Pain , Severe (7-10) Multi-Ingredient Ointment 1 applic 05/31/21 23:04 Lanolin/Zinc/Dimethicone (Lansinoh) 7 Gm TP PRN PRN dryness/cracking Nalbuphine HCl 10 mg 05/31/21 19:12 Nalbuphine 10 Mg/1 Ml Inj IV Q2H PRN Pain, Moderate (4-6) Naloxone HCl 0.1 mg 05/31/21 23:04 Naloxone 0.4 Mg/1 Ml Inj IV Q2MIN PRN Res Rate </= 8 or 02 SAT < 92% Oxycodone/Acetaminophen 1 tab 05/31/21 23:04 06/02/21 22:41 Oxycodone /Acetaminophen 5-325mg Tab PO 1 tab Q6H PRN Administration Pain, Moderate (4-6) Witch Marisela/Glycerin 1 each 05/31/21 23:04 Witch Marisela/ Glycerin Pad TP PRN PRN Hemorrhoids/cleansing/soothing
--- NOTE | 2021-06-03 11:40 | Discharge Summary ---
Providers - Providers Date of Admission: 05/31/21 19:12 Date of discharge: 06/03/21 Attending physician: ISRAEL AWAD MD 06/01/21 07:44 Consult to Physician [CONS] Routine Comment: Consulting Provider: TALIB STEVENS Physician Instructions: Reason For Exam: IDDM; /postop () Primary care physician: HOSTLER HELPER Hospitalization Delivery: Procedure: repeat low transverse Discharge diagnosis: IUP at term delivered Condition at discharge: Stable Disposition: 01 HOME / SELF CARE / HOMELESS Plan - Discharge Medications Prescriptions: Insulin NPH Human Isophane [HumuLIN N] 7 unit SQ QAM #1 vial Insulin NPH Human Isophane [HumuLIN N] 5 unit SQ QPM #1 vial Metformin HCl [metFORMIN] 500 mg PO BID #60 solution Ibuprofen [Motrin] 600 mg PO Q8H PRN #60 tablet PRN Reason: Pain oxyCODONE /ACETAMINOPHEN [Percocet 5/325] 1 tab PO Q6HR PRN #20 tablet PRN Reason: Pain - Provider Discharge Summary Activity: no sex for 6 weeks Additional instructions: [] Smoking cessation referral if applicable(refer to patient education folder for contact #) [] Refer to [facility] Booklet Call your doctor immediately for: * Fever > 100.5 * Heavy vaginal bleeding ( >1 pad per hour) * Severe persistent headache * Shortness of breath * Reddened, hot, painful area to leg or breast * Drainage or odor from incision. * Keep incision clean and dry at all times and follow doctor's instructions regarding bathing/showering - Follow up plan Follow up: LACY HERRERA MD [Primary Care Provider] - 7 Days ISRAEL AWAD MD [Staff Physician] - 7 Days
[2021-06-03 14:52] VITALS: BP 133/82
== END 2021-06-03 13:30 | disposition home or self-care (01) | DRG 786 ==
LOC: TRG 17:06 → APU 17:07 → TRG 19:12 → APU 19:12 → OB 06-01 00:59
PROVIDERS: ADMIT Obstetrics & Gynecology; ATTEND Obstetrics & Gynecology
PROC: 10D00Z1 Extraction of Products of Conception, Low, Open Approach (ICD-10-PCS; principal; 2021-05-31)
DX: O34.211 Maternal care for low transverse scar from previous cesarean delivery (principal); O24.12 Pre-existing type 2 diabetes mellitus, in childbirth; O86.12 Endometritis following delivery; O24.425 Gestational diabetes mellitus in childbirth, controlled by oral hypoglycemic drugs; Z37.0 Single live birth; Z20.822 Contact with and (suspected) exposure to COVID-19; O99.284 Endocrine, nutritional and metabolic diseases complicating childbirth; E03.9 Hypothyroidism, unspecified; O99.214 Obesity complicating childbirth; E66.01 Morbid (severe) obesity due to excess calories; O99.62 Diseases of the digestive system complicating childbirth; K21.9 Gastro-esophageal reflux disease without esophagitis; Z3A.39 39 weeks gestation of pregnancy; Z91.013 Allergy to seafood; Z79.4 Long term (current) use of insulin; Z83.3 Family history of diabetes mellitus; Z82.49 Family history of ischemic heart disease and other diseases of the circulatory system; Z80.9 Family history of malignant neoplasm, unspecified
CPT/HCPCS: 36415; 80053; 82962; 83036; 84112; 85014; 85018; 85025; 86592; 86706; 86762; 86803; 86850; 86900; 86901; 87806; 88307; G0378; J2354; J3490; J7060; Q9967; J1815; J1885; J2765; J7120; J7121; U0003